=== PATIENT | female | born 1945 | race Caucasian/White ===

== ENCOUNTER 2017-07-25 10:15 | Outpatient (CLI) | payer MEDICARE ==
--- NOTE | 2017-07-25 11:05 | RAD ---
TWO VIEWS CERVICAL SPINE: History: Follow up exam. Previous cervical spine surgery. Comparison: 04-25-17 FINDINGS: Re-demonstration of anterior fusion plate with transvertebral screw at C4, C5, C6 and C7. There raymundo nues to be anterior migration of plate with respect to the vertebral bodies. At the C4 level, there i s approximately 3 mm of anterior migration. At the C7 vertebral body there is 2 mm of anterior migrat ion. The degree of migration has decreased when compared to prior exam. Stable prosthesis at C4-5, C5 -6, and C6-7 disc spaces. AP projection demonstrates degenerative changes of the posterior elements. Odontoid process and later al masses of C1 and C2 are unremarkable. IMPRESSION: Post-operative changes as above. POS: [facility]UL[facility]
== END 2017-07-25 10:16 | disposition home or self-care (01) ==
LOC: TBSIIMAG 10:15
PROVIDERS: ATTEND Surgery
DX: M50.30 Other cervical disc degeneration, unspecified cervical region (principal); Z98.890 Other specified postprocedural states
CPT/HCPCS: 72040

== ENCOUNTER 2017-10-31 17:57 | Observation (INO) | payer MEDICARE ==
[~2017-10-31 17:57] MED LIST: ISOVUE-370 76%-LOCM 1 ML ONE
[2017-10-31] MEDS ORDERED: Lorazepam 2 MG/ML VIAL ONE (18:29)
[2017-10-31 18:36] LABS: #Eosinphils 0.2 thou/uL (0.0-0.7); #Lymphocytes 1.2 thou/uL (1.20-3.40); #Monocytes 0.3 thou/uL (0.11-0.59); #Neutrophils 3.1 thou/uL (1.40-6.50); %Basophils 0.7 % (0.0-1.0); %Eosinophils 3.6 % (0.0-10.0); %Lymphocytes 24.1 % (21.0-51.0); %Monocytes 6.5 % (0.0-10.0); %Neutrophils 65.2 % (42.0-75.0); Hemoglobin 13.4 g/dL (12.0-16.0); Mean Corpuscular Hemoglobin 30.5 pg (27.0-31.0); Mean Corpuscular Volume 89.7 fl (81.0-99.0); Mean Platelet Volume 6.8 fL (7.4-10.4); Platelet Count 222 thou/uL (130-400); RBC Distribution Width 12.9 % (11.5-14.5); Red Blood Cell (RBC) Count 4.39 mill/uL (4.20-5.40); White Blood Cell (WBC) Count 4.8 thou/uL (4.8-10.8)
[2017-10-31 19:02] LABS: ALT (SGPT) Less than 7 U/L (8-55); AST (SGOT) 14 U/L (5-34); Alkaline Phosphatase 111 U/L (40-150); Anion Gap 9 mmol/L (10-20); BUN (Urea Nitrogen) 15 mg/dL (9.8-20.1); Bilirubin, Total 0.4 mg/dL (0.2-1.2); Calc. Creatinine Clearance 0 mL/min (70-130); Calcium 9.3 mg/dL (7.8-10.44); Carbon Dioxide 31 mmol/L (23-31); Chloride 104 mmol/L (98-107); Estimated GFR-MDRD 44; Globulin 2.8 g/dL (2.4-3.5); Glucose 110 mg/dL (83-110); Potassium 3.6 mmol/L (3.5-5.1); Protein, Total 6.8 g/dL (6.0-8.3); Sodium 140 mmol/L (136-145)
[2017-10-31 19:07] LABS: CKMB 1.2 ng/mL (0-6.6); Troponin I Less than 0.010 ng/mL (< 0.028)
--- NOTE | 2017-10-31 19:36 | RAD ---
CHEST ONE VIEW 10/31/17 HISTORY: Emergency exam. COMPARISON: Chest radiograph 2016. FINDINGS: Lungs without focal air space consolidation, pneumothorax or effusion. Increased mediastinal fat. The aorta is mildly tortuous. Incomplete evaluation of the ACDF hardware. IMPRESSION: No acute intrathoracic abnormality or significant change. POS: [facility]
[2017-10-31] MEDS ORDERED: Acetaminophen 325 MG TAB PO PRN ×2 (22:15→22:47)
[2017-10-31] MEDS ORDERED: Ondansetron HCl/PF 4 MG/2 ML Vial IVP PRN ×2 (22:15→22:47)
[2017-10-31] MEDS ORDERED: Ondansetron ODT 4 MG TAB SL PRN (22:15)
--- NOTE | 2017-10-31 22:22 | CT ---
CT ANGIOGRAM CHEST WITH CONTRAST 10/31/17 HISTORY: Dyspnea and fatigue. COMPARISON: None. FINDINGS: CT angiogram of the chest performed after the intravenous administration of contrast. 3D rendering is provided. Pulmonary trunk size is upper limits of normal. No proximal segmental pulmonary arterial f illing defect. Thyroid is unremarkable. The ascending aorta measures approximately 4 cm. No adenopathy. Heart size upper limits of normal. Mild pancreatic atrophy. [place] nodes may be splenule. Right upper lobe calcified granuloma. Mild atelectasis in the right lung base. No displaced rib fracture. No arthrosis or compression fracture. IMPRESSION: 1. No proximal segmental pulmonary arterial filling defect. 2. No acute intrathoracic abnormality. POS: [facility]
[2017-10-31 22:35] LABS: Troponin I Less than 0.010 ng/mL (< 0.028)
[2017-10-31 22:44] LABS: Cardiac Risk 4.7 (Less than 4.5)
[2017-10-31] MEDS ORDERED: hydrALAZINE 20 MG/ML VIAL SLOW IVP PRN (22:47)
[2017-10-31] MEDS ORDERED: traMADol HCl 50 MG TAB PO PRN (22:47)
[2017-10-31] MEDS ORDERED: Mag-Al 1200 mg/1200 mg/30 ML UDCUP PO PRN (22:47)
[2017-10-31] MEDS ORDERED: Benzonatate 100 MG CAP PO PRN (22:47)
[2017-10-31] MEDS ORDERED: Lorazepam 1 MG TAB PO PRN (22:47)
[2017-10-31] MEDS ORDERED: Diabetic Tussin 200 MG/10 ML UDCUP PO PRN (22:47)
[2017-10-31] MEDS ORDERED: Bisacodyl 5 MG TAB PO PRN (22:47)
[2017-10-31] MEDS ORDERED: Calcium Carbonate 500 MG ChewTAB PO PRN (22:47)
[2017-10-31] MEDS ORDERED: cloNIDine 0.1 MG TAB PO PRN (22:47)
[2017-10-31] MEDS ORDERED: Nitroglycerin 0.4 MG TAB (25 Tab Bottle) SL PRN (22:47)
[2017-10-31] MEDS ORDERED: Senokot 8.6 MG TAB PO PRN (22:47)
[2017-10-31] MEDS ORDERED: HYDROcodone/Acetaminophen 5/325 mg Tablet PO PRN (22:47)
[2017-10-31] MEDS ORDERED: Loratadine 10 MG TAB PO PRN (22:47)
--- NOTE | 2017-10-31 23:15 | HP ---
PRIMARY CARE PHYSICIAN: Dr. Teresa Smith. CHIEF COMPLAINT: Worsening shortness of breath and excessive tiredness. HISTORY OF PRESENT ILLNESS: Ms. Barry is a very pleasant 72-year-old female with past med ical history of Parkinson's, hypertension, dyslipidemia, gastroesophageal reflux disease, who present ed to the emergency room with above-mentioned complaint. History is mainly obtained by the patient h erself and electronic medical records have been reviewed. The patient reports that she usually is very active, but for the last week or so, she is finding that she is getting easily tired and short of breath. [place], but when she was doing it yesterday, she just could not catch a good breath. She also has history of si gnificant chronic back pain and neck pain and is under the care of Dr. Monteiro and feels that her pain is worse now. She feels that the neck pain has traveled to the front of her chest and she is v emily sore in the anterior chest and her right arm, but her main complaint is excessive tiredness and w eakness. She noticed that she has been sleeping longer stretches even during the day. She does repo rt that she is under a lot of mental stress these days. She also reports that recently the Synthroid dose was reduced, but it has not been checked in few sun and she is due for a TSH check. She was reduced from 125 to 100 to 88 mcg. She also endorses so me dysuria and urgency. Urinalysis has not been done. She also reports that she has history of high cholesterol, but has been unable to take any medications because of severe myopathy. Her primary ca re physician has tried different medications without any effect. She reports that she follows up with Dr. Coto on a regular basis. She is undergoing a stress te st almost every 2 years and her last one was about 1 year ago and everything has been reportedly very well. 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 Coto. She denies any recent illnesses or flu-like symptoms. No nausea, vomiting, diarrhea, abdominal pain. She denies any fever, chills, cough. She has mild extremity swelling, but denies any orthopnea or PND. PAST MEDICAL HISTORY: 1. Hypertension. 2. Dyslipidemia. 3. Gastroesophageal reflux disease. 4. Hypothyroidism. 5. Parkinson's disease. 6. Fibromyalgia. 7. Chronic back and neck pain. PAST SURGICAL HISTORY: 1. Spinal surgery. 2. Multiple biopsies of the breast, both sides. 3. Neck surgery. 4. Hernia repair. 5. Hysterectomy. PSYCHIATRIC HISTORY: Depression. SOCIAL HISTORY: She lives alone. No history of drug, tobacco or alcohol abuse. FAMILY HISTORY: Significant for heart disease in her father who is still alive at 95. He had a hear t attack in his 80s. Her mother had multiple mini strokes and is . ALLERGIES: No known medication allergies. CURRENT HOME MEDICATIONS: 1. Carbidopa/levodopa 50/200 twice a day and 25/100 at lunch time. 2. Aspirin 81 mg daily. 3. Chlordiazepoxide/Clidinium 5/2.5 mg b.i.d. 4. Carvedilol 3.125 mg b.i.d. 5. Nexium 20 mg daily. 6. Duloxetine 60 mg b.i.d. REVIEW OF SYSTEMS: The following complete review of systems was negative, unless otherwise mentioned in the HPI or below: Constitutional: Weight loss or gain, ability to conduct usual activities. Skin: Rash, itching. Eyes: Double vision, pain. ENT/Mouth: Nose bleeding, neck stiffness, pain, tenderness. Cardiovascular: Palpitations, dyspnea on exertion, orthopnea. Respiratory: Shortness of breath, wheezing, cough, hemoptysis, fever or night sweats. Gastrointestinal: Poor appetite, abdominal pain, heartburn, nausea, vomiting, constipation, or diarr hea. Genitourinary: Urgency, frequency, dysuria, nocturia. Musculoskeletal: Pain, swelling. Neurologic/Psychiatric: Anxiety, depression. Allergy/Immunologic: Skin rash, bleeding tendency. LABORATORY DATA AND IMAGING: Her CBC today is unremarkable. D-dimer elevated to 0.58. Serum chemis tries show creatinine of 1.21 and this seems to be at baseline looking back at least 2 years. Cardia c enzymes negative so far. Her EKG showed some T-wave inversion in the anterior leads, otherwise nor mal sinus rhythm by my review. Chest x-ray by my review has no evidence to suggest any effusion, rosette ma or infiltrate. CT angio of the thorax has been done, because of the elevated D-dimer and reported ly it has been negative for pulmonary embolism. Formal report is pending at this time. PHYSICAL EXAMINATION: VITAL SIGNS: Upon presentation, blood pressure 194/107, pulse of 75, respirations 14, saturating 99% on room air, temperature 98.5. GENERAL: No acute distress, sitting upright in chair, awake, alert, oriented x3. HEENT: Mucous membrane is moist and pink. No oropharyngeal exudate or erythema. Head is normocepha lic, atraumatic. Pupils equal, reactive to light and accommodation. Extraocular movement intact. NECK: Supple without any lymphadenopathy, JVD or bruit. CHEST: Clear to auscultation without any wheezing, rales or rhonchi. Rate and rhythm is regular wit hout any murmur, rubs or gallops. She is tender to palpation anteriorly in the chest wall, both left and right side without any obvious erythema or tenderness or swelling or masses. ABDOMEN: Soft, nontender, nondistended with positive bowel sounds. EXTREMITIES: Free of any cyanosis, clubbing, or edema. NEUROLOGIC: Nonfocal. SKIN: Free of any rashes or bruises. Feel warm and dry to touch. PSYCHIATRIC: Normal affect, but she was tearful in the ED. IMPRESSION AND PLAN: 1. Dyspnea on exertion. The etiology is unclear at this time. We will rule out cardiac causes; how ever, the patient has refused the stress test at this time. We will try to get the results of her mo recent stress test done at Dr. Coto's office. Continue to trend serial cardiac enzymes and w e will also obtain a transthoracic echocardiogram to rule out cardiomyopathy or valvular abnormalitie s. She will be treated with oxygen as needed. We will also check a BNP, though her symptoms are not consistent with fluid overload. No evidence to suggest infectious etiology like pneumonia. She carin s not have any history of chronic obstructive pulmonary disease and her examination is also not consi stent with airway disease. We will also check a TSH, which can most likely be contributing to her sy mptoms of excessive fatigue. Stress can also be a contributing factor to her symptoms at this time. She is not hypoxic or symptomatic at this time. 2. Hypothyroidism. Check TSH as above. 3. Parkinson's. We will resume her carbidopa and levodopa at home dosages. 4. Dyslipidemia. The patient is intolerant to statins and other antilipidemic agents. We will chec k her lipid panel. 5. Hypertensive urgency. We will resume her carvedilol at this time and add p.r.n. antihypertensive s. Her repeat blood pressure has significantly improved, so most likely this is secondary to stress. Her repeat blood pressure is 155/86. If necessary, we will either increase the carvedilol or add A CE inhibitors depending upon the results of her echocardiogram. 5. Depression. Continue duloxetine. 6. CODE STATUS: FULL CODE, discussed with the patient. 7. Add p.r.n. medication order and deep venous thrombosis and gastrointestinal prophylaxis. DISPOSITION: Ms. Barry is currently being admitted for further workup for dyspnea and tiredness to rule out acute coronary syndrome. Further management will depend upon her clinical course. Estimated length of stay at this time is less than 2-3 midnights.
[2017-11-01 00:58] LABS: Troponin I Less than 0.010 ng/mL (< 0.028)
[2017-11-01 01:20] LABS: Bilirubin Negative (Negative); Blood, Urine Negative (Negative); Clarity CLEAR (Clear); Glucose, Urine (Dipstick) Negative (Negative); Leukocyte Negative (Negative); Nitrite Negative (Negative); Protein, Urine (Dipstick) Negative (Neg-Trace); Specific Gravity, Urine 1.027 (1.002-1.036); Urobilinogen 0.2 mg/dL (0.2-1.0); pH, Urine 7.5 (5.0-9.0)
[2017-11-01 04:17] LABS: #Eosinphils 0.2 thou/uL (0.0-0.7); #Lymphocytes 1.2 thou/uL (1.20-3.40); #Monocytes 0.3 thou/uL (0.11-0.59); %Eosinophils 3.7 % (0.0-10.0); %Lymphocytes 25.1 % (21.0-51.0); %Monocytes 6.8 % (0.0-10.0); %Neutrophils 63.4 % (42.0-75.0); Hemoglobin 12.5 g/dL (12.0-16.0); Mean Corpuscular HGB CONC 33.2 g/dL (32.0-36.0); Mean Corpuscular Hemoglobin 30.9 pg (27.0-31.0); Mean Corpuscular Volume 93.1 fl (81.0-99.0); Mean Platelet Volume 7.3 fL (7.4-10.4); Platelet Count 197 thou/uL (130-400); RBC Distribution Width 13.1 % (11.5-14.5); Red Blood Cell (RBC) Count 4.06 mill/uL (4.20-5.40); White Blood Cell (WBC) Count 4.7 thou/uL (4.8-10.8)
[2017-11-01 04:32] LABS: Anion Gap 13 mmol/L (10-20); BUN (Urea Nitrogen) 14 mg/dL (9.8-20.1); Calc. Creatinine Clearance 51 mL/min (70-130); Calcium 9.1 mg/dL (7.8-10.44); Carbon Dioxide 27 mmol/L (23-31); Chloride 103 mmol/L (98-107); Estimated GFR-MDRD 49; Glucose 132 mg/dL (83-110); Potassium 3.7 mmol/L (3.5-5.1); Sodium 139 mmol/L (136-145)
[2017-11-01 07:38] VITALS: BP 143/65; TEMP 97.6
[2017-11-01] MEDS ORDERED: Carvedilol 3.125 MG TAB PO SCH (08:00)
[2017-11-01] MEDS ORDERED: Enoxaparin Sodium 40 MG/0.4 ML SYRINGE SC SCH (09:00)
[2017-11-01] MEDS ORDERED: Aspirin 81 mg Enteric Coated Tablet PO SCH (09:00)
[2017-11-01] MEDS ORDERED: Carbidopa/Levodopa 25-100 mg Tablet PO SCH ×2 (09:00→12:00)
[2017-11-01] MEDS ORDERED: DULoxetine 60 MG CAP PO SCH (09:00)
[2017-11-01] MEDS ORDERED: Famotidine 20 MG TAB PO SCH (09:00)
--- NOTE | 2017-11-01 10:13 | PDOC.PN ---
- Subjective Encounter Start Date: 11/01/17 Encounter Start Time: 08:20 Subjective: no c/o chest pain or sob or palp - Objective MAR Reviewed: Yes Vital Signs & Weight: Vital Signs (12 hours) Temp Pulse Resp BP BP Pulse Ox 11/01/17 08:00 97.6 F 51 L 16 11/01/17 07:04 97.6 F 51 L 16 143/65 H 95 11/01/17 04:15 51 L 18 114/66 94 L 11/01/17 00:50 61 18 130/72 10/31/17 23:30 62 195/93 H Weight Weight 152 lb Result Diagrams: 11/01/17 00:26 11/01/17 00:26 Phys Exam - Physical Examination HEENT: PERRLA, moist MMs Neck: no JVD, supple Respiratory: no wheezing, no rales Cardiovascular: RRR, no significant murmur Gastrointestinal: soft, non-tender, positive bowel sounds Musculoskeletal: no edema, pulses present Neurological: non-focal, moves all 4 limbs Psychiatric: A&O x 3 Dx/Plan (1) Chest pain Code(s): R07.9 - CHEST PAIN, UNSPECIFIED Status: Acute (2) Dyslipidemia Code(s): E78.5 - HYPERLIPIDEMIA, UNSPECIFIED Status: Chronic (3) Parkinson disease Code(s): G20 - PARKINSON'S DISEASE Status: Chronic (4) Hypothyroidism Code(s): E03.9 - HYPOTHYROIDISM, UNSPECIFIED Status: Chronic - Plan add crestor, fish oil -: dc pt home -: to f/u with as before, pcp in 1 week. -: Pt to call 's office for f/u appt * .
--- NOTE | 2017-11-01 19:43 | DIS ---
DATE OF ADMISSION: 10/31/2017 DATE OF DISCHARGE: 11/01/2017 DISCHARGE DISPOSITION: To home. PRIMARY DISCHARGE DIAGNOSIS: Chest pain, which is noncardiac. SECONDARY DISCHARGE DIAGNOSES: Dyslipidemia, Parkinson's disease, hypothyroidism. PROCEDURES DONE DURING HOSPITALIZATION: The patient has had CT angio chest done, which showed no batsheva dence of PE. Urine culture no growth at 12 hours. H&H 12 and 37, platelet count 197. BUN and creat inine are 14 and 1.0. Total cholesterol 239, triglycerides 214, LDL is 145. TSH 2.76. BNP 142. Tr oponin x3 negative. DISCHARGE MEDICATIONS: Aspirin 81 mg p.o. daily, Sinemet as before, Coreg 3.125 mg p.o. twice daily, Librax 1 capsule twice daily, clonazepam 1 mg p.o. at bedtime, duloxetine 60 mg p.o. daily, Nexium 4 0 mg p.o. daily, levothyroxine 88 mcg p.o. daily, omega-3 fatty acid 1 capsule daily, Crestor 10 mg p .o. at bedtime. ALLERGIES: No known drug allergies. DISCHARGE PLAN: The patient to follow up with primary care physician in 1 week and she also needs to follow up with Dr. Coto, her mobile nurse in 4 weeks. BRIEF COURSE DURING HOSPITALIZATION: The patient initially came in with complaints of neck pain radi ating to the chest. In view of risk factors, the patient was placed under observation to rule out AC S. She has chronic cervical spine issues with prior surgery as well and has followed up with Dr. Amelia bryan for the same. The patient also had a stress test done a year back with Dr. Coto. She was e ssentially for trending of cardiac enzymes, which have remained stable and negative. The patient was placed on Crestor due to her LDL of 145 and triglycerides of 214. The patient was also advised to t brenda fish oil. She has been advised to discontinue Crestor if she were to develop muscle or body ache s. The patient is counseled to call Dr. Agee's office for the posterior neck pain radiating anteri michael to the chest wall in view of prior history of C-spine disease. She is otherwise hemodynamically stable. She is ambulating well and eating well prior to discharge.
[2017-11-01] MEDS ORDERED: Rosuvastatin 10 MG TAB PO SCH (21:00)
== END 2017-11-01 10:21 | disposition home or self-care (01) ==
LOC: ERS 17:57 → 2SW 21:00
PROVIDERS: ADMIT Internal Medicine; ATTEND Internal Medicine
DX: R07.89 Other chest pain (principal); E78.5 Hyperlipidemia, unspecified; E03.9 Hypothyroidism, unspecified; G20 Parkinson's disease; F32.9 Major depressive disorder, single episode, unspecified; I10 Essential (primary) hypertension; K21.9 Gastro-esophageal reflux disease without esophagitis; I16.0 Hypertensive urgency; M79.7 Fibromyalgia; G89.29 Other chronic pain; M54.9 Dorsalgia, unspecified; M54.2 Cervicalgia; Z79.82 Long term (current) use of aspirin; Z79.899 Other long term (current) drug therapy; Z98.890 Other specified postprocedural states; Z82.49 Family history of ischemic heart disease and other diseases of the circulatory system
CPT/HCPCS: 71045; 71275; 80048; 80061; 81003; 82553; 83880; 84484 ×3; 85025; 85379; 87086; 93005; 96372; 97139; 99285; G0378; 36415; 80053; 84443; A4216; J1650; J2060

== ENCOUNTER 2018-01-16 09:59 | Outpatient (CLI) | payer MEDICARE ==
--- NOTE | 2018-01-16 10:47 | RAD ---
CERVICAL SPINE THREE VIEWS: History: Neck pain. Follow up of surgery. Comparison: 07-25-17 FINDINGS: Patient has undergone anterior cervical fusion with placement of a plate and screws which extends fro m C4 to C7. The position of the plate and screws is unchanged. Markers of disc implants are within th e confines of the disc levels. Degenerative facet changes are noted. IMPRESSION: Stable exam. POS: [facility]
== END 2018-01-16 10:00 | disposition home or self-care (01) ==
LOC: TBSIIMAG 09:59
PROVIDERS: ATTEND Surgery
DX: M54.2 Cervicalgia (principal); Z98.1 Arthrodesis status
CPT/HCPCS: 72040

== ENCOUNTER 2018-03-20 20:35 | Emergency (ER) | payer MEDICARE ==
--- NOTE | 2018-03-20 23:57 | CT ---
CT CERVICAL SPINE WITHOUT CONTRAST 03/20/18 HISTORY: Patient fell from bed. Posttraumatic headache. Pain. COMPARISON: 04/25/17. FINDINGS: Redemonstration of cervical fusion changes at C4, C5, C6, and C7. No perihardware lucency. Stable rhys earance of a disc prosthesis. There is no prevertebral soft tissue swelling. There is no malalignment . Varying degrees of central canal stenosis and foraminal narrowing on the basis of degenerative change . Evaluation is limited by technique. Upper mediastinum is unremarkable. Chronic changes in the lung apices are noted. There is no craniocervical dissociation. Lateral masses of C1 and C2 as well as facets have appropria te alignment. Odontoid process is intact. Cervical spine vertebral body height is maintained. There is no fracture. IMPRESSION: No cervical spine fracture. POS: [facility]
--- NOTE | 2018-03-21 00:04 | CT ---
NONCONTRAST HEAD CT 03/20/18 HISTORY: Patient fell out of bed. Posterior head pain. COMPARISON: 05/18/16 FINDINGS: No parenchymal hemorrhage. No extra-axial hematoma. No midline shift. Basilar cisterns are patent. Ag e appropriate atrophy. Cortical summers-white matter differentiation is preserved. Ventricles and sulci are patent and symmetric. Adequate aeration of the sinuses and mastoid air cells. Calvarium is intact. Bilateral ocular lens im plants are noted. IMPRESSION: No intracranial posttraumatic sequela. POS: [facility]
[2018-03-21] MEDS ORDERED: cloNIDine 0.1 MG TAB ONE (00:32)
== END 2018-03-21 01:54 | disposition home or self-care (01) ==
LOC: ERS 20:35
DX: S09.90XA Unspecified injury of head, initial encounter (principal); E03.9 Hypothyroidism, unspecified; I10 Essential (primary) hypertension; F32.9 Major depressive disorder, single episode, unspecified; Z79.82 Long term (current) use of aspirin; Z79.899 Other long term (current) drug therapy; W22.8XXA Striking against or struck by other objects, initial encounter
CPT/HCPCS: 70450; 72125; 99283; G0260; G0463; 27096; 99214; J1030; S0020

== ENCOUNTER 2018-05-31 12:27 | Outpatient (CLI) | payer MEDICARE ==
--- NOTE | 2018-05-31 15:08 | MRI ---
MRI OF THE RIGHT SHOULDER: DATE: 05/31/2018. PROVIDED CLINICAL HISTORY: Right shoulder pain. FINDINGS: There is abnormal appearance to the distal conjoined tendon just proximal to the foot plate. There i s increased signal intensity on fluid-sensitive sequences involving this portion of the rotator cuff with poor definition to tendon fibers on multiple sequences. There are small foci of true fluid sign al intensity. The subscapularis and teres minor tendons appear intact. The long head biceps tendon appears intact and normally located. There is suboptimal evaluation of the glenoid labrum and glenohumeral articular cartilage on the basi s of patient motion. No definite full-thickness articular cartilage defect is apparent. No evidence for displaced labral tear. There is a moderate glenohumeral joint effusion. There is a large amount of subacromial subdeltoid bursal fluid, which communicates with the subcoraco id bursa in this patient. There is conspicuous distention of the subcoracoid bursa. There are multi ple intraarticular bodies within the superior subscapularis recess. Acromioclavicular joint osteoarthrosis is demonstrated with mild mass effect upon the subjacent supra spinatus. Rotator cuff muscular volume appears preserved. No focal concerning regional marrow or mu scular signal abnormality apparent. IMPRESSION: 1. Abnormal appearance to the distal conjoined tendon. This may reflect prior tear with granulation tissue formation. Some combination of tendinosis and partial-thickness nonattenuating interstitial tearing is also possible. 2. Moderate glenohumeral joint effusion with intraarticular bodies. 3. A very large amount of subacromial subdeltoid bursal fluid, as well as communication with distend ed subcoracoid bursa. This presumably reflects bursitis, though could indicate communication between the glenohumeral joint and subacromial subdeltoid bursa such as could be seen with an occult full-th ickness rotator cuff tear. POS: [facility]
== END 2018-05-31 12:28 | disposition home or self-care (01) ==
LOC: BICMRI 12:27
PROVIDERS: ATTEND Orthopaedic Surgery
DX: M25.511 Pain in right shoulder (principal); M75.91 Shoulder lesion, unspecified, right shoulder; M25.411 Effusion, right shoulder

== ENCOUNTER 2018-07-01 12:11 | Outpatient (CLI) | payer MEDICARE ==
[2018-07-01 14:12] LABS: #Eosinphils 0.2 thou/uL (0.0-0.7); #Lymphocytes 1.2 thou/uL (1.20-3.40); #Monocytes 0.3 thou/uL (0.11-0.59); #Neutrophils 3.4 thou/uL (1.40-6.50); %Basophils 0.5 % (0.0-1.0); %Eosinophils 3.6 % (0.0-10.0); %Lymphocytes 24.1 % (21.0-51.0); %Monocytes 5.6 % (0.0-10.0); %Neutrophils 66.2 % (42.0-75.0); Hemoglobin 13.7 g/dL (12.0-16.0); Mean Corpuscular HGB CONC 32.2 g/dL (32.0-36.0); Mean Corpuscular Hemoglobin 30.1 pg (27.0-31.0); Mean Corpuscular Volume 93.6 fL (78.0-98.0); Mean Platelet Volume 7.4 fL (7.4-10.4); Platelet Count 172 thou/uL (130-400); RBC Distribution Width 12.6 % (11.5-14.5); Red Blood Cell (RBC) Count 4.54 mill/uL (4.20-5.40); White Blood Cell (WBC) Count 5.1 thou/uL (4.8-10.8)
[2018-07-01 14:36] LABS: Anion Gap 9 mmol/L (10-20); BUN (Urea Nitrogen) 11 mg/dL (9.8-20.1); Calc. Creatinine Clearance 0 mL/min (70-130); Calcium 10.3 mg/dL (7.8-10.44); Carbon Dioxide 32 mmol/L (23-31); Chloride 103 mmol/L (98-107); Estimated GFR-MDRD 45; Glucose 76 mg/dL (83-110); Potassium 3.6 mmol/L (3.5-5.1); Sodium 140 mmol/L (136-145)
--- NOTE | 2018-07-01 17:00 | EKG ---
Test Reason : Blood Pressure : / mmHG Vent. Rate : 064 BPM Atrial Rate : 064 BPM P-R Int : 180 ms QRS Dur : 082 ms QT Int : 388 ms P-R-T Axes : 035 078 080 degrees QTc Int : 400 ms Normal sinus rhythm Nonspecific ST-T changes When compared with ECG of 31-OCT-2017 19:39, No significant change was found Confirmed by DR. Val AMES (3) on 07/01/2018 4:59:59 PM Referred By: IERO Confirmed By:DR. Val AMES
== END 2018-07-01 12:12 | disposition home or self-care (01) ==
LOC: LABBT 12:11
PROVIDERS: ATTEND Orthopaedic Surgery
DX: Z01.818 Encounter for other preprocedural examination (principal)
CPT/HCPCS: 80048; 85025; 93005; 93010

== ENCOUNTER 2018-07-03 07:21 | Day surgery (SDC) | payer MEDICARE ==
[2018-07-01 12:35] VITALS: BMI 28.6
[2018-07-03] MEDS ORDERED: Ropivacaine 0.5% HCl/PF (150 MG/30 ML VIAL) ONE (08:08)
[2018-07-03] MEDS ORDERED: Ropivacaine 0.2% HCl/PF (40 MG/20 ML VIAL) ONE (08:08)
[2018-07-03] MEDS ORDERED: Esmolol 100 MG/10 ML VIAL ONE (08:26)
[2018-07-03] MEDS ORDERED: PROPOFOL 200 MG/20 ML VIAL ONE (08:26)
[2018-07-03] MEDS ORDERED: Metoprolol Tartrate 5 MG/5 ML VIAL ONE (08:26)
[2018-07-03] MEDS ORDERED: Ondansetron PF 4 MG/2 ML Vial ONE (08:26)
[2018-07-03] MEDS ORDERED: Glycopyrrolate 0.2 MG/ML 5 ML SYRINGE ONE (08:26)
[2018-07-03] MEDS ORDERED: Dexamethasone 20 MG/5 ML VIAL ONE (08:26)
[2018-07-03] MEDS ORDERED: Metoclopramide HCl 10 MG/2 ML VIAL ONE (08:26)
[2018-07-03] MEDS ORDERED: Lidocaine 1% PF 5 ML VIAL ONE (08:26)
[2018-07-03] MEDS ORDERED: Ketorolac Tromethamine 30 MG/ML VIAL ONE (08:26)
[2018-07-03] MEDS ORDERED: Fentanyl 100 MCG/2 ML VIAL ONE (08:37)
[2018-07-03] MEDS ORDERED: Midazolam HCl 2 mg/2 ml Vial ONE (08:37)
[2018-07-03] MEDS ORDERED: Lidocaine 1% (PF) 30 ML VIAL ONE (08:37)
[2018-07-03] MEDS ORDERED: CEFAZOLIN 2 GM/50 ML BAG ONE (08:38)
[2018-07-03] MEDS ORDERED: SUGAMMADEX SODIUM 200 MG/2 ML VIAL ONE (09:33)
[2018-07-03] MEDS ORDERED: Famotidine/PF 20 mg/2ml Vial ONE (09:33)
[2018-07-03] MEDS ORDERED: Ropivacaine 0.2% 550 ML 550 ML NERVE BLCK SCH (09:42)
[2018-07-03] MEDS ORDERED: traMADol HCl 50 MG TAB PO PRN ×2 (09:42)
[2018-07-03] MEDS ORDERED: Promethazine HCl 25 MG/ML VIAL IM PRN (09:42)
[2018-07-03] MEDS ORDERED: Ondansetron PF 4 MG/2 ML Vial IVP PRN (09:42)
[2018-07-03] MEDS ORDERED: Zolpidem Tartrate 5 MG TAB PO PRN (09:42)
[2018-07-03] MEDS ORDERED: HYDROcodone/Acetaminophen 7.5/325 mg Tablet PO PRN ×2 (09:43)
[2018-07-03] MEDS ORDERED: Fentanyl 100 MCG/2 ML VIAL IV PRN (09:43)
[2018-07-03] MEDS ORDERED: Bupivacaine/Epinephrine 0.25% 30 ML VIAL ONE (09:56)
[2018-07-03] MEDS ORDERED: hydrALAZINE 20 MG/ML VIAL ONE (10:32)
--- NOTE | 2018-07-04 12:49 | OP ---
DATE OF PROCEDURE: 07/03/2018. PREOPERATIVE DIAGNOSES: Right shoulder multiple loose bodies, early arthritis, partial cuff tear and biceps tendon tearing and instability. POSTOPERATIVE DIAGNOSES: Right shoulder multiple loose bodies, early arthritis, partial cuff tear an d biceps tendon tearing and instability. PROCEDURE PERFORMED: 1. Right shoulder arthroscopy with removal of cartilaginous loose bodies 2. Debridement and shaving of unstable cartilage flaps in the glenohumeral joint. 3. Debridement and cauterization of significant synovitic changes in the glenohumeral joint. 4. Debridement of partial undersurface rotator cuff tear. 5. Arthroscopic biceps tenotomy. 6. Debridement of subacromial bursa. SURGEON: Roger Miller M.D. CONSTRUCTION LINEMAN: None. BLOOD LOSS: Minimal. COMPLICATIONS: None. She did have general anesthetic as well as a preoperative block. There were no implants. CONDITION: She went to the recovery room in stable condition. INDICATIONS: This is a 73-year-old female who has had long-term shoulder problems. At this time, he was taken to the OR for surgery. After both consent forms were explained and signed, she was taken to the operating room and at this time was given general anesthetic. She was then rolled into the le ft lateral decubitus position with all bony prominences well-padded. Axillary roll was placed beneat h the left axilla and the moore bag was inflated to hold this position. At this time, the arm was jeanette en through range of motion and was found to have no significant loss of motion. [facility] traction device in standard fashion with 10 pounds supporting it. At this time, we then prepped and draped the right shoulder and upper extremity in standard lazara gical fashion. Bony anatomic landmarks were then drawn out and subacromial space was infiltrated wit h Marcaine with epinephrine. Posterior portal established was placed into the shoulder joint. Anterior working portal was made and immediately, we noted some loose bodies floating around in the glenohumeral joint. These were removed with a suction shaver device. There were two more loose bodi es encountered throughout the glenohumeral arthroscopy portion of the procedure. Again, these were r emoved with the suction shaver device. The rotator cuff was found to have a partial undersurface tea r. Once debrided, there was significant a good tissue and did not feel a need to be treated any furt her. No further loose bodies were noted in the axillary pouch. The humeral head did have some chond ral changes anteriorly, but I believe the donor area for the cartilage loose bodies was from the evan oid as there were some significant grade 3 and near-full thickness lesions on the glenoid. The gleno humeral joint also had a significant amount of synovitic tissue. This was coagulated with surface en ergy and debrided to remove this to help with postoperative pain and lack of bleeding. The degenerat hannah labrum was debrided throughout and at this time, the biceps was found to be in stable, has a trem endous amount of synovitic tissue above it and in fact, it was all scarred down secondary to this. T his area was freed up. Synovitic tissue was ablated and coagulated and the biceps tenotomy was perfo rmed with the surface energy. Once this was done, the glenohumeral joint overall looked pretty good with no more loose bodies. No significant synovitic tissue and normal painful biceps. Therefore, th e scope was removed and repositioned in subacromial space. A lateral working portal was then made. Bursa was removed from off the underlying cuff. The cuff itself was found to be intact. No signific ant bony decompression was performed. At this time, scope was removed, shoulder was drained. Each p ortal was closed with simple nylon stitch and a bulky sterile dressing was applied. The patient was then awakened. She was taken to the recovery room in stable condition. All counts were correct at t he end of the case and she did receive preoperative IV antibiotics.
--- NOTE | 2018-07-04 12:49 | HP ---
HISTORY OF PRESENT ILLNESS: This is a 73-year-old female who has had months of increasing right shou lder pain. We have tried to treat this nonoperatively with rest, medicines, injections and home ther apy program. Unfortunately, the patient has continued to have problems and we did obtain an MRI whic h showed her to have some loose bodies, some early arthritic change in the shoulder, a partial thickn ess rotator cuff tear and some significant thickening of her biceps tendon. At this time, she is pre senting for surgery. PAST MEDICAL HISTORY/PAST SURGICAL HISTORY/ALLERGIES/ MEDICATIONS/FAMILY HISTORY/SOCIAL HISTORY: Unc hanged from the H&P that are on the chart. PHYSICAL EXAMINATION: GENERAL: She is a well-developed elderly female. She is not in acute distress. She is alert. She is cooperative. HEENT: Within normal limits. EXTREMITIES: Examination of the shoulder shows the skin to be intact. There is no redness, no warmt h. She has no pain with palpation of the AC joint. She has limited range of motion secondary to concepcion n. Testing the elbow with the elbow at the side shows her to have good internal and external rotatio n strength with pain. She has normal function of the elbow, wrist and fingers and is neurovascularly intact distally. ASSESSMENT: A 73-year-old female with underlying right shoulder pain. PLAN: At this time, recommendation from assessment is to go to the operating room for closed manipul ation, if necessary shoulder arthroscopy, removal of loose bodies, debridement of any loose cartilagi nous loose bodies, debridement of any rotator cuff tear and a biceps tenotomy if indicated. Afterwar ds, secondary to patient's lack of supervision at home she has already been preoperatively accepted i [facility] inpatient rehab and will leave from Day Stay here at the hospital to the inpatient rehab afterwar ds.
== END 2018-07-03 15:43 | disposition home or self-care (01) ==
LOC: SDC 07:21
PROVIDERS: ATTEND Orthopaedic Surgery
PROC: 0RCJ4ZZ Extirpation of Matter from Right Shoulder Joint, Percutaneous Endoscopic Approach (ICD-10-PCS; principal; 2018-07-03)
PROC: 0RBJ4ZZ Excision of Right Shoulder Joint, Percutaneous Endoscopic Approach (ICD-10-PCS; 2018-07-03)
PROC: 0RBJ4ZZ Excision of Right Shoulder Joint, Percutaneous Endoscopic Approach (ICD-10-PCS; 2018-07-03)
DX: M75.111 Incomplete rotator cuff tear or rupture of right shoulder, not specified as traumatic (principal); M24.011 Loose body in right shoulder; M19.011 Primary osteoarthritis, right shoulder; M25.311 Other instability, right shoulder; S46.211A Strain of muscle, fascia and tendon of other parts of biceps, right arm, initial encounter; Z79.82 Long term (current) use of aspirin; Z79.899 Other long term (current) drug therapy; Z88.8 Allergy status to other drugs, medicaments and biological substances
CPT/HCPCS: 29820; 97139; A4306; J0131; J0360; J2001; J2250; J2795; J3010; S0028

== ENCOUNTER 2018-07-05 09:04 | Emergency (ER) | payer MEDICARE ==
[2018-07-05] MEDS ORDERED: Ziprasidone 20 MG VIAL ONE (09:33)
[2018-07-05] MEDS ORDERED: Haloperidol Lactate 5 MG/ML VIAL ONE (09:41)
[2018-07-05] MEDS ORDERED: Ziprasidone 20 MG VIAL IM ONE (09:45)
[2018-07-05 10:14] LABS: #Basophils 0.1 thou/uL (0.0-0.2); #Eosinphils 0.1 thou/uL (0.0-0.7); #Lymphocytes 1.3 thou/uL (1.20-3.40); #Monocytes 0.5 thou/uL (0.11-0.59); #Neutrophils 4.1 thou/uL (1.40-6.50); %Basophils 0.9 % (0.0-1.0); %Lymphocytes 21.9 % (21.0-51.0); %Neutrophils 67.2 % (42.0-75.0); Mean Corpuscular HGB CONC 32.7 g/dL (32.0-36.0); Mean Corpuscular Hemoglobin 30.5 pg (27.0-31.0); Mean Corpuscular Volume 93.2 fL (78.0-98.0); Mean Platelet Volume 7.4 fL (7.4-10.4); Platelet Count 160 thou/uL (130-400); RBC Distribution Width 12.7 % (11.5-14.5); Red Blood Cell (RBC) Count 4.59 mill/uL (4.20-5.40); White Blood Cell (WBC) Count 6.1 thou/uL (4.8-10.8)
[2018-07-05 10:37] LABS: ALT (SGPT) 9 U/L (8-55); AST (SGOT) 33 U/L (5-34); Acetaminophen Less than 6.0 mcg/mL (10.0-30.0); Albumin 4.1 g/dL (3.4-4.8); Alcohol Less than 10 mg/dL (Less than 10); Alkaline Phosphatase 58 U/L (40-150); Anion Gap 13 mmol/L (10-20); BUN (Urea Nitrogen) 16 mg/dL (9.8-20.1); Bilirubin, Total 0.5 mg/dL (0.2-1.2); Calc. Creatinine Clearance 0 mL/min (70-130); Calcium 9.3 mg/dL (7.8-10.44); Carbon Dioxide 25 mmol/L (23-31); Chloride 108 mmol/L (98-107); Estimated GFR-MDRD 42; Globulin 2.8 g/dL (2.4-3.5); Glucose 97 mg/dL (83-110); Potassium 3.7 mmol/L (3.5-5.1); Protein, Total 6.9 g/dL (6.0-8.3); Salicylate Less than 8.0 mg/dL (15.0-30.0); Sodium 142 mmol/L (136-145)
--- NOTE | 2018-07-05 11:19 | RAD ---
CHEST ONE VIEW: History: Sycosis. Comparison: 11-01-15 FINDINGS: There are abnormal radiopacities projecting in the right hemithorax, maybe outside of the patient. He art size is mildly enlarged. Lungs are hypoinflated. There is ACDF hardware. IMPRESSION: Radiopacities likely outside of the patient projecting over the right hemithorax. No acute intrathora cic abnormality. POS: [facility]
--- NOTE | 2018-07-05 11:30 | CT ---
CT OF THE BRAIN WITHOUT CONTRAST: Indication: History of undiagnosed psychiatric issues with sycosis. Comparison: 03-20-18 FINDINGS: There is generalized cerebral and cerebellar atrophy which is stable. No acute infarct, hemorrhage, o r hydrocephalus is present. Mastoid air cells and paranasal sinuses are clear. Skull is intact. IMPRESSION: No acute intracranial abnormality. POS: [facility]
[2018-07-05 11:42] LABS: Bilirubin Negative (Negative); Blood, Urine Negative (Negative); Clarity CLEAR (Clear); Glucose, Urine (Dipstick) Negative (Negative); Leukocyte Negative (Negative); Nitrite Negative (Negative); Protein, Urine (Dipstick) Negative (Neg-Trace); Specific Gravity, Urine 1.004 (1.002-1.036); Urobilinogen 0.2 mg/dL (0.2-1.0)
[2018-07-05 11:53] LABS: Amphetamine Not Detected (NotDetected); Barbiturates Screen Not Detected (NotDetected); Benzodiazepine Screen Detected (NotDetected); Cocaine Metabolite Screen Not Detected (NotDetected); Medtox Control Line Valid? VALID (VALID); Medtox Reader # READER 4; Methadone Not Detected (NotDetected); Methamphetamine Not Detected (NotDetected); Opiate Screen Not Detected (NotDetected); Oxycodone Screen Not Detected (NotDetected); Phencyclidine (PCP) Not Detected (NotDetected); THC/Cannabinoid Screen Not Detected (NotDetected); Tricyclic Screen Not Detected (NotDetected)
[2018-07-05] MEDS ORDERED: Lorazepam 2 MG/ML VIAL ONE (19:24)
== END 2018-07-05 19:44 ==
LOC: ERS 09:04
DX: F29 Unspecified psychosis not due to a substance or known physiological condition (principal); G47.30 Sleep apnea, unspecified; K21.9 Gastro-esophageal reflux disease without esophagitis; E78.5 Hyperlipidemia, unspecified; I10 Essential (primary) hypertension; M81.0 Age-related osteoporosis without current pathological fracture; F41.9 Anxiety disorder, unspecified; E03.9 Hypothyroidism, unspecified; F32.9 Major depressive disorder, single episode, unspecified; G20 Parkinson's disease; Z79.82 Long term (current) use of aspirin; Z79.899 Other long term (current) drug therapy; Z79.891 Long term (current) use of opiate analgesic
CPT/HCPCS: 51702; 70450; 71045; 80306; 80307; 81003; 84443; 85025; 96372; 96374; A4353; J1630; J2060; J3486

== ENCOUNTER 2018-07-09 22:48 | Emergency (ER) | payer MEDICARE | END 2018-07-09 23:33 | disposition home or self-care (01) | LOC: SCSER 22:48 | DX: L76.32 Postprocedural hematoma of skin and subcutaneous tissue following other procedure (principal); I10 Essential (primary) hypertension | CPT/HCPCS: 99283 ==

== ENCOUNTER 2018-12-22 13:18 | Emergency (ER) | payer MEDICARE ==
[2018-12-22 13:56] LABS: #Eosinphils 0.1 thou/uL (0.0-0.7); #Lymphocytes 0.9 thou/uL (1.20-3.40); #Monocytes 0.3 thou/uL (0.11-0.59); #Neutrophils 5.1 thou/uL (1.40-6.50); %Basophils 0.7 % (0.0-1.0); %Lymphocytes 14.2 % (21.0-51.0); %Neutrophils 79.2 % (42.0-75.0); Hemoglobin 12.9 g/dL (12.0-16.0); Mean Corpuscular HGB CONC 33.1 g/dL (32.0-36.0); Mean Corpuscular Hemoglobin 30.1 pg (27.0-31.0); Mean Corpuscular Volume 90.8 fL (78.0-98.0); Mean Platelet Volume 6.5 fL (7.4-10.4); Platelet Count 157 thou/uL (130-400); RBC Distribution Width 13.2 % (11.5-14.5); White Blood Cell (WBC) Count 6.4 thou/uL (4.8-10.8)
[2018-12-22 14:12] LABS: Anion Gap 15 mmol/L (10-20); BUN (Urea Nitrogen) 20 mg/dL (9.8-20.1); Calc. Creatinine Clearance 0 mL/min (70-130); Carbon Dioxide 22 mmol/L (23-31); Chloride 105 mmol/L (98-107); Estimated GFR-MDRD 40; Potassium 3.6 mmol/L (3.5-5.1); Sodium 138 mmol/L (136-145)
[2018-12-22 14:13] LABS: ALT (SGPT) Less than 6 U/L (8-55); AST (SGOT) 11 U/L (5-34); Albumin 3.8 g/dL (3.4-4.8); Alkaline Phosphatase 111 U/L (40-150); Bilirubin, Total 0.5 mg/dL (0.2-1.2); Calcium 9.9 mg/dL (7.8-10.44); Globulin 2.3 g/dL (2.4-3.5); Glucose 122 mg/dL (83-110); Protein, Total 6.1 g/dL (6.0-8.3)
--- NOTE | 2018-12-22 14:15 | RAD ---
Right shoulder: 3 views INDICATIONS: Shoulder pain. Mild degenerative change at the glenohumeral joint. AC joint normally aligned. No fracture or disloca tion. IMPRESSION: No acute finding
--- NOTE | 2018-12-22 14:24 | CT ---
CT head without contrast: Multiple axial tomograms obtained through the head without IV enhancement. INDICATIONS: Occipital pain. COMPARISON: 07/05/2018 FINDINGS: Ventricles have normal size and position. Mild cortical volume loss is stable. No evidence of intracranial mass, hemorrhage, edema, or infarct. Visualized sinuses and mastoids appear clear. Bony calvarium appears unremarkable. Scalp hematoma over the left parietal bone measuring approximately 2 cm. IMPRESSION: No acute intracranial abnormality. Scalp hematoma on the left is noted.
--- NOTE | 2018-12-22 14:38 | CT ---
CT cervical spine without contrast: Multiple axial tones obtained through cervical spine with multiplanar reconstruction. INDICATIONS: Neck pain. Right shoulder pain. COMPARISON: CT cervical spine 03/20/2018 FINDINGS: Postoperative changes. Anterior plate and screws again noted C4, C5, C6, and C7. Interbody implants a t these levels again noted. Vertebral bodies otherwise maintain height and alignment. Prominent posterior spondylosis at C4-5 impinges on the anterior cord. Mild foraminal narrowing. Posterior spondylosis abut anterior cord at C5-6. Impingement on the cord from posterior spondylosis at C6-7. Findings are stable from prior CT scan. IMPRESSION: Degenerative and postoperative changes of cervical spine again noted. Not significantly changed from prior exam.
[2018-12-22] MEDS ORDERED: HYDROcodone/Acetaminophen 5/325 mg Tablet ONE (14:49)
== END 2018-12-22 14:53 | disposition home or self-care (01) ==
LOC: SCSER 13:18
DX: S00.03XA Contusion of scalp, initial encounter (principal); K21.9 Gastro-esophageal reflux disease without esophagitis; E03.9 Hypothyroidism, unspecified; I10 Essential (primary) hypertension; G20 Parkinson's disease; F32.9 Major depressive disorder, single episode, unspecified; E78.5 Hyperlipidemia, unspecified; F41.9 Anxiety disorder, unspecified; Z79.899 Other long term (current) drug therapy
CPT/HCPCS: 36415; 70450; 72125; 80053; 84484; 85025; 93005

== ENCOUNTER 2020-07-06 09:19 | Outpatient (CLI) | payer MEDICARE ==
--- NOTE | 2020-07-06 11:50 | MRI ---
MRI BRAIN NONCONTRAST: DATE: 07/06/2020 HISTORY: 75-year-old female with headache and dizzy spells. TECHNIQUE: This was ordered with and without contrast. However, because of patient's low GFR of 34, and no histo ry of cancer, and no high index of suspicion for infection, the study was performed without contrast. FINDINGS: There is no obstructive hydrocephalus. There is no midline shift or any other evidence of mass effect . There is no extra-axial fluid collection. There are mild chronic ischemic white matter changes due to microvascular atherosclerosis. There is diffuse brain parenchymal volume loss. There is no batsheva dence of recent hemorrhage or restricted diffusion. There is a small en plaque ossified meningioma overlying the left cerebral convexity, which is unchanged compared to 04/04/2017. IMPRESSION: 1) Involutional changes and mild chronic ischemic white matter changes, typical for age. 2) no acute intracranial findings. 3) incidental finding of a small ossified en plaque meningioma over the left cerebral convexity.
== END 2020-07-06 09:20 | disposition home or self-care (01) ==
LOC: TBSIIMAG 09:19
PROVIDERS: ATTEND Surgery
DX: R51.9 Headache, unspecified (principal); R42 Dizziness and giddiness; D32.0 Benign neoplasm of cerebral meninges
CPT/HCPCS: 70551; 70553; 82565

== ENCOUNTER 2020-08-02 10:28 | Outpatient (CLI) | payer MEDICARE ==
--- NOTE | 2020-08-02 13:17 | MRI ---
MRI OF THE LUMBAR SPINE: DATE: 08/02/2020. COMPARISON: None. HISTORY: Back pain, lumbar radiculopathy. TECHNIQUE: Multiplanar, multisequence MR imaging of the lumbar spine is provided without contrast. FINDINGS: There are prominent edematous degenerative end plate changes present at the L3-4 level. On the basis of 5 lumbar-type vertebral bodies, the conus medullaris terminates at the T12-L1 level. T12-L1: There is disk space narrowing with disk desiccation. Mild bilateral fact hypertrophy with n o significant central canal or neural foraminal stenosis. L1-2: There is disk space narrowing and disk desiccation with mild anterior osteophyte formation. T here is no significant central canal or neural foraminal stenosis. L2-3: There is disk space narrowing with disk desiccation, anterior osteophyte formation, and mild d isk bulge. Mild bilateral facet hypertrophy with no significant central canal or neural foraminal st enosis. L3-4: Prominent degenerative end plate change. Disk-osteophyte complex present with minimal left la teral recess stenosis. No significant right neural foraminal stenosis. Mild left neural foraminal s tenosis. L4-5: There is disk space narrowing with disk desiccation and mild disk bulge. There is a very smal l disk protrusion in the left paracentral region with no associated central canal or neural foraminal stenosis. L5-S1: There is disk space narrowing with disk desiccation. There is an annular tear in the left pa racentral region. There is mild bilateral facet hypertrophy. There is no significant central canal or neural foraminal stenosis. Review of the retroperitoneal structures demonstrates no acute findings. IMPRESSION: Degenerative changes as described above. POS: [facility]
== END 2020-08-02 10:29 | disposition home or self-care (01) ==
LOC: TBSIIMAG 10:28
PROVIDERS: ATTEND Surgery
DX: M47.26 Other spondylosis with radiculopathy, lumbar region (principal)
CPT/HCPCS: 72148

== ENCOUNTER 2021-01-18 15:37 | Emergency (ER) | payer MEDICARE | END 2021-01-18 20:14 | disposition home or self-care (01) | LOC: ERS 15:37 | DX: S00.83XA Contusion of other part of head, initial encounter (principal); G20 Parkinson's disease; K21.9 Gastro-esophageal reflux disease without esophagitis; E03.9 Hypothyroidism, unspecified; E78.5 Hyperlipidemia, unspecified; I10 Essential (primary) hypertension; Z79.82 Long term (current) use of aspirin; Z79.899 Other long term (current) drug therapy; X58.XXXA Exposure to other specified factors, initial encounter | CPT/HCPCS: 70450; 70486; 72125 ==

== ENCOUNTER 2021-09-09 07:23 | Outpatient (CLI) | payer MEDICARE ==
[2021-09-09] MEDS ORDERED: Iopamidol 370 76% 100 ML VIAL ONE (14:29)
== END 2021-09-09 07:24 | disposition home or self-care (01) ==
LOC: CT 07:23
PROVIDERS: ATTEND Student in an Organized Health Care Education/Training Program
DX: R19.00 Intra-abdominal and pelvic swelling, mass and lump, unspecified site (principal); K86.2 Cyst of pancreas; Z90.710 Acquired absence of both cervix and uterus
CPT/HCPCS: 74178; 82565; Q9967

== ENCOUNTER 2021-12-15 13:38 | Outpatient (CLI) | payer MEDICARE | END 2021-12-15 13:39 | disposition home or self-care (01) | LOC: TBSIIMAG 13:38 | PROVIDERS: ATTEND Surgery | DX: M47.22 Other spondylosis with radiculopathy, cervical region (principal); Z98.1 Arthrodesis status | CPT/HCPCS: 72141 ==

== ENCOUNTER 2022-03-04 20:02 | Emergency (ER) | payer MEDICARE ==
[2022-03-04 20:26] LABS: #Eosinphils 0.2 thou/uL (0.0-0.7); #Lymphocytes 1.3 thou/uL (1.20-3.40); #Monocytes 0.4 thou/uL (0.11-0.59); #Neutrophils 3.7 thou/uL (1.40-6.50); %Basophils 0.8 % (0.0-1.0); %Eosinophils 3.8 % (0.0-10.0); %Lymphocytes 23.2 % (21.0-51.0); %Monocytes 6.3 % (0.0-10.0); %Neutrophils 65.9 % (42.0-75.0); Hemoglobin 12.7 g/dL (12.0-16.0); Mean Corpuscular HGB CONC 32.8 g/dL (32.0-36.0); Mean Corpuscular Hemoglobin 30.6 pg (27.0-31.0); Mean Corpuscular Volume 93.2 fL (78.0-98.0); Mean Platelet Volume 6.9 fL (7.4-10.4); Platelet Count 170 thou/uL (130-400); RBC Distribution Width 13.6 % (11.5-14.5); Red Blood Cell (RBC) Count 4.14 mill/uL (4.20-5.40); White Blood Cell (WBC) Count 5.6 thou/uL (4.8-10.8)
[2022-03-04 20:50] LABS: ALT (SGPT) Less than 7 U/L (8-55); AST (SGOT) 12 U/L (5-34); Albumin 3.9 g/dL (3.4-4.8); Alkaline Phosphatase 65 U/L (40-110); Anion Gap 12 mmol/L (10-20); BUN (Urea Nitrogen) 18 mg/dL (9.8-20.1); Bilirubin, Total 0.3 mg/dL (0.2-1.2); Calc. Creatinine Clearance 0 mL/min (70-130); Calcium 9.7 mg/dL (7.8-10.44); Carbon Dioxide 29 mmol/L (23-31); Chloride 101 mmol/L (98-107); Estimated GFR 36; Globulin 2.6 g/dL (2.4-3.5); Glucose 112 mg/dL (83-110); Magnesium 1.9 mg/dL (1.6-2.6); Potassium 3.2 mmol/L (3.5-5.1); Protein, Total 6.5 g/dL (5.8-8.1); Sodium 139 mmol/L (136-145)
== END 2022-03-04 22:55 | disposition home or self-care (01) ==
LOC: ERS 20:02
DX: R55 Syncope and collapse (principal); E03.9 Hypothyroidism, unspecified; K21.9 Gastro-esophageal reflux disease without esophagitis; E78.5 Hyperlipidemia, unspecified; E78.00 Pure hypercholesterolemia, unspecified; I10 Essential (primary) hypertension; Z79.82 Long term (current) use of aspirin; Z79.899 Other long term (current) drug therapy
CPT/HCPCS: 71045; 80053; 83735; 84443; 84484; 85025; 93005

== ENCOUNTER 2022-06-23 09:24 | Outpatient (CLI) | payer MEDICARE | END 2022-06-23 09:25 | disposition home or self-care (01) | LOC: ULT 09:24 | PROVIDERS: ATTEND Internal Medicine Nephrology | DX: N17.9 Acute kidney failure, unspecified (principal); R93.421 Abnormal radiologic findings on diagnostic imaging of right kidney; R93.422 Abnormal radiologic findings on diagnostic imaging of left kidney | CPT/HCPCS: 76770 ==

== ENCOUNTER 2023-03-28 10:19 | Outpatient (CLI) | payer MEDICARE | END 2023-03-28 10:20 | disposition home or self-care (01) | LOC: BICCT 10:19 | PROVIDERS: ATTEND Nurse Practitioner Family | DX: M48.062 Spinal stenosis, lumbar region with neurogenic claudication (principal); M47.816 Spondylosis without myelopathy or radiculopathy, lumbar region; M47.817 Spondylosis without myelopathy or radiculopathy, lumbosacral region | CPT/HCPCS: 72131 ==

== ENCOUNTER 2023-04-24 17:52 | Emergency (ER) | payer OTHER, MEDICARE | END 2023-04-24 19:16 | disposition home or self-care (01) | LOC: ERS 17:52 | DX: S06.0X0A Concussion without loss of consciousness, initial encounter (principal); G20 Parkinson's disease; W01.190A Fall on same level from slipping, tripping and stumbling with subsequent striking against furniture, initial encounter; Y93.01 Activity, walking, marching and hiking; Y92.009 Unspecified place in unspecified non-institutional (private) residence as the place of occurrence of the external cause; Z79.01 Long term (current) use of anticoagulants; Z95.0 Presence of cardiac pacemaker | CPT/HCPCS: 70450 ==

== ENCOUNTER 2023-05-06 16:31 | Emergency (ER) | payer MEDICARE ==
[2023-05-06] MEDS ORDERED: Meclizine HCl 25 MG TAB ONE ×2 (17:11→17:13)
[2023-05-06 17:29] LABS: #Eosinphils 0.1 thou/uL (0.0-0.7); #Monocytes 0.5 thou/uL (0.11-0.59); #Neutrophils 5.5 thou/uL (1.40-6.50); %Basophils 0.6 % (0.0-1.0); %Eosinophils 1.7 % (0.0-10.0); %Lymphocytes 13.4 % (21.0-51.0); %Monocytes 6.4 % (0.0-10.0); %Neutrophils 77.6 % (42.0-75.0); Mean Corpuscular HGB CONC 33.3 g/dL (32.0-36.0); Mean Corpuscular Hemoglobin 31.3 pg (27.0-31.0); Mean Platelet Volume 9.3 fL (7.4-10.4); Platelet Count 192 10x3/uL (130-400); RBC Distribution Width 13.6 % (11.5-14.5); Red Blood Cell (RBC) Count 4.15 mill/uL (4.20-5.40)
[2023-05-06 17:54] LABS: ALT (SGPT) Less than 7 U/L (8-55); AST (SGOT) 15 U/L (5-34); Albumin 4.1 g/dL (3.4-4.8); Alkaline Phosphatase 65 U/L (40-110); Anion Gap 14 mmol/L (10-20); BUN (Urea Nitrogen) 27 mg/dL (9.8-20.1); Bilirubin, Total 0.4 mg/dL (0.2-1.2); Calc. Creatinine Clearance 0 mL/min (70-130); Calcium 9.7 mg/dL (7.8-10.44); Carbon Dioxide 23 mmol/L (23-31); Chloride 103 mmol/L (98-107); Estimated GFR 29; Globulin 2.3 g/dL (2.4-3.5); Glucose 89 mg/dL (83-110); Potassium 3.7 mmol/L (3.5-5.1); Protein, Total 6.4 g/dL (5.8-8.1); Sodium 136 mmol/L (136-145)
== END 2023-05-06 21:14 | disposition home or self-care (01) ==
LOC: ERS 16:31
DX: R42 Dizziness and giddiness (principal); R51.9 Headache, unspecified
CPT/HCPCS: 36415; 70450; 71045; 80053; 85025; 93005

== ENCOUNTER 2023-05-07 21:19 | Emergency (ER) | payer MEDICARE ==
[2023-05-07] MEDS ORDERED: Meclizine HCl 25 MG TAB ONE (22:56)
== END 2023-05-08 00:13 | disposition home or self-care (01) ==
LOC: ERS 21:19
DX: R42 Dizziness and giddiness (principal); W18.30XA Fall on same level, unspecified, initial encounter
CPT/HCPCS: 70450; 93005

== ENCOUNTER 2023-08-07 16:00 | Emergency (ER) | payer OTHER, MEDICARE ==
[2023-08-07 17:17] LABS: #Eosinphils 0.1 thou/uL (0.0-0.7); #Monocytes 0.4 thou/uL (0.11-0.59); %Basophils 0.5 % (0.0-1.0); %Eosinophils 1.7 % (0.0-10.0); %Lymphocytes 21.3 % (21.0-51.0); %Neutrophils 69.2 % (42.0-75.0); Hematocrit 39.4 % (36.0-47.0); Mean Corpuscular Hemoglobin 31.7 pg (27.0-31.0); Mean Corpuscular Volume 96.1 fl (78.0-98.0); Mean Platelet Volume 9.2 fL (7.4-10.4); Platelet Count 179 10x3/uL (130-400); RBC Distribution Width 13.2 % (11.5-14.5); White Blood Cell (WBC) Count 5.8 10x3/uL (4.8-10.8)
[2023-08-07] MEDS ORDERED: Acetaminophen 500 MG TAB ONE (17:36)
[2023-08-07 17:41] LABS: ALT (SGPT) Less than 7 U/L (8-55); AST (SGOT) 15 U/L (5-34); Alkaline Phosphatase 56 U/L (40-110); Anion Gap 12 mmol/L (10-20); BUN (Urea Nitrogen) 23 mg/dL (9.8-20.1); Bilirubin, Total 0.5 mg/dL (0.2-1.2); Calc. Creatinine Clearance 0 mL/min (70-130); Calcium 9.7 mg/dL (7.8-10.44); Carbon Dioxide 28 mmol/L (23-31); Chloride 102 mmol/L (98-107); Estimated GFR 46; Globulin 2.5 g/dL (2.4-3.5); Glucose 87 mg/dL (83-110); Protein, Total 6.5 g/dL (5.8-8.1); Sodium 138 mmol/L (136-145)
[2023-08-07 17:46] LABS: Troponin I Less than 0.010 ng/mL (< 0.028)
== END 2023-08-07 18:28 | disposition home or self-care (01) ==
LOC: ERS 16:00
DX: S09.90XA Unspecified injury of head, initial encounter (principal); I10 Essential (primary) hypertension; E78.00 Pure hypercholesterolemia, unspecified; Z79.899 Other long term (current) drug therapy; Z79.82 Long term (current) use of aspirin; W01.10XA Fall on same level from slipping, tripping and stumbling with subsequent striking against unspecified object, initial encounter
CPT/HCPCS: 36415; 70450; 71045; 72125; 80053; 84484; 85025; 93005

== ENCOUNTER 2023-11-12 23:10 | Inpatient (IN) | payer MEDICARE ==
[2023-11-12] MEDS ORDERED: CEFAZOLIN 2 GM VIAL ONE (23:24)
[2023-11-12] MEDS ORDERED: Sodium Chloride 0.9% 100 ML ONE (23:24)
[2023-11-12] MEDS ORDERED: fentaNYL 50 mcg/mL 1 mL Vial ONE (23:31)
[2023-11-12] MEDS ORDERED: Rabies Vaccine Human 2.5 UNITS VIAL ONE (23:47)
[2023-11-12] MEDS ORDERED: Ondansetron PF 4 MG/2 ML Vial ONE (23:47)
[2023-11-13] MEDS ORDERED: Rabies Immune Globulin/PF 300 UNITS/ML VIAL ONE ×2 (00:01)
[2023-11-13 00:08] LABS: ALT (SGPT) Less than 7 U/L (8-55); AST (SGOT) 30 U/L (5-34); Albumin 4.1 g/dL (3.4-4.8); Alkaline Phosphatase 67 U/L (40-110); Anion Gap 21 mmol/L (10-20); BUN (Urea Nitrogen) 25 mg/dL (9.8-20.1); Bilirubin, Total 0.7 mg/dL (0.2-1.2); Calc. Creatinine Clearance 0 mL/min (70-130); Calcium 9.6 mg/dL (7.8-10.44); Carbon Dioxide 14 mmol/L (23-31); Chloride 105 mmol/L (98-107); Estimated GFR 27; Globulin 2.7 g/dL (2.4-3.5); Glucose 104 mg/dL (83-110); Potassium 3.8 mmol/L (3.5-5.1); Protein, Total 6.8 g/dL (5.8-8.1); Sodium 136 mmol/L (136-145)
[2023-11-13 00:10] LABS: #Basophils 0.1 thou/uL (0.0-0.2); #Eosinphils 0.1 thou/uL (0.0-0.7); %Basophils 0.3 % (0.0-1.0); %Eosinophils 0.3 % (0.0-10.0); %Lymphocytes 4.7 % (21.0-51.0); %Monocytes 4.9 % (0.0-10.0); %Neutrophils 89.2 % (42.0-75.0); Hematocrit 36.7 % (36.0-47.0); Mean Corpuscular HGB CONC 32.7 g/dL (32.0-36.0); Mean Corpuscular Volume 97.9 fl (78.0-98.0); Mean Platelet Volume 9.5 fL (7.4-10.4); Platelet Count 196 10x3/uL (130-400); RBC Distribution Width 13.1 % (11.5-14.5); Red Blood Cell (RBC) Count 3.75 mill/uL (4.20-5.40); White Blood Cell (WBC) Count 20.1 10x3/uL (4.8-10.8)
[2023-11-13 00:23] LABS: INR-International Normal Ratio 1.3; Prothrombin Time 16.2 sec (12.0-14.7)
[2023-11-13 00:24] LABS: PTT 33.4 sec (22.9-36.1)
[2023-11-13] MEDS ORDERED: Morphine 4 MG/ML VIAL ONE (01:03)
[2023-11-13] MEDS ORDERED: Ipratropium/Albuterol 3 ML NEB NEB PRN (01:10)
[2023-11-13] MEDS ORDERED: Ondansetron PF 4 MG/2 ML Vial IVP PRN (01:10)
[2023-11-13 03:28] VITALS: BMI 25.2
[2023-11-13] MEDS: Sodium Chloride 0.9% 1,000 ML IV SCH (04:12)
[2023-11-13] MEDS: Piperacillin/Tazobactam 3.375 GM in Sodium Chloride 0.9% 100 ML IVPB SCH ×2 (04:13→08:15)
[2023-11-13 05:28] LABS: #Monocytes 0.9 thou/uL (0.11-0.59); #Neutrophils 13.3 thou/uL (1.40-6.50); %Basophils 0.3 % (0.0-1.0); %Eosinophils 0.1 % (0.0-10.0); %Lymphocytes 6.5 % (21.0-51.0); %Monocytes 5.7 % (0.0-10.0); %Neutrophils 86.8 % (42.0-75.0); Hematocrit 33.6 % (36.0-47.0); Mean Corpuscular HGB CONC 32.7 g/dL (32.0-36.0); Mean Corpuscular Hemoglobin 31.7 pg (27.0-31.0); Mean Corpuscular Volume 96.8 fl (78.0-98.0); Mean Platelet Volume 9.1 fL (7.4-10.4); Platelet Count 163 10x3/uL (130-400); RBC Distribution Width 13.2 % (11.5-14.5); Red Blood Cell (RBC) Count 3.47 mill/uL (4.20-5.40); White Blood Cell (WBC) Count 15.4 10x3/uL (4.8-10.8)
[2023-11-13 05:43] LABS: INR-International Normal Ratio 1.3; Prothrombin Time 16.1 sec (12.0-14.7)
[2023-11-13 05:44] LABS: PTT 33.4 sec (22.9-36.1)
[2023-11-13 05:45] LABS: Anion Gap 11 mmol/L (10-20); BUN (Urea Nitrogen) 29 mg/dL (9.8-20.1); Calc. Creatinine Clearance 26 mL/min (70-130); Calcium 8.7 mg/dL (7.8-10.44); Carbon Dioxide 25 mmol/L (23-31); Chloride 106 mmol/L (98-107); Estimated GFR 27; Glucose 115 mg/dL (83-110); Potassium 3.7 mmol/L (3.5-5.1); Sodium 138 mmol/L (136-145)
[2023-11-13] MEDS: Levothyroxine Sodium 100 MCG TAB PO SCH (05:50)
[2023-11-13] MEDS: Acetaminophen 325 MG TAB PO SCH (05:50)
[2023-11-13] MEDS ORDERED: Piperacillin/Tazobactam 3.375 GM in Sodium Chloride 0.9% 100 ML IVPB SCH (06:00)
[2023-11-13] MEDS: Famotidine/PF 20 mg/2ml Vial SLOW IVP SCH (08:15)
[2023-11-13] MEDS: DULoxetine 60 MG CAP PO SCH (08:30)
[2023-11-13] MEDS: Carbidopa/Levodopa CR 50-200 mg Tablet PO SCH (08:31)
[2023-11-13] MEDS ORDERED: PROPOFOL 40 ML ONE (12:37)
[2023-11-13] MEDS ORDERED: fentaNYL PF 100 MCG/2 ML SYRINGE ONE (12:37)
[2023-11-13] MEDS ORDERED: Lidocaine 2% PF 5 ML VIAL ONE (12:39)
[2023-11-13] MEDS ORDERED: Ondansetron PF 4 MG/2 ML Vial ONE (13:24)
[2023-11-13] MEDS ORDERED: PHENYLEPHRINE-NS 100 MCG/ML 10 ML SYRINGE ONE (13:31)
[2023-11-14] MEDS: Lorazepam 2 MG/ML VIAL SLOW IVP SCH (06:01)
[2023-11-14] MEDS: Morphine 2 MG/ML VIAL SLOW IVP PRN (09:34)
[2023-11-15 07:54] LABS: #Eosinphils 0.1 thou/uL (0.0-0.7); #Monocytes 0.4 thou/uL (0.11-0.59); #Neutrophils 3.2 thou/uL (1.40-6.50); %Basophils 0.5 % (0.0-1.0); %Eosinophils 2.3 % (0.0-10.0); %Lymphocytes 15.6 % (21.0-51.0); %Monocytes 7.9 % (0.0-10.0); %Neutrophils 73.5 % (42.0-75.0); Hematocrit 28.9 % (36.0-47.0); Hemoglobin 9.4 g/dL (12.0-16.0); Mean Corpuscular HGB CONC 32.5 g/dL (32.0-36.0); Mean Corpuscular Hemoglobin 31.3 pg (27.0-31.0); Mean Corpuscular Volume 96.3 fl (78.0-98.0); Mean Platelet Volume 9.5 fL (7.4-10.4); Platelet Count 126 10x3/uL (130-400); RBC Distribution Width 13.1 % (11.5-14.5); White Blood Cell (WBC) Count 4.4 10x3/uL (4.8-10.8)
[2023-11-15 08:09] LABS: Anion Gap 10 mmol/L (10-20); BUN (Urea Nitrogen) 16 mg/dL (9.8-20.1); Calc. Creatinine Clearance 48 mL/min (70-130); Calcium 8.6 mg/dL (7.8-10.44); Carbon Dioxide 25 mmol/L (23-31); Chloride 110 mmol/L (98-107); Estimated GFR 54; Glucose 93 mg/dL (83-110); Potassium 3.6 mmol/L (3.5-5.1); Sodium 141 mmol/L (136-145)
[2023-11-15 08:13] LABS: INR-International Normal Ratio 1.2; Prothrombin Time 14.7 sec (12.0-14.7)
[2023-11-15 08:14] LABS: PTT 38.2 sec (22.9-36.1)
[2023-11-16] MEDS ORDERED: Rabies Immune Globulin/PF 300 UNITS/ML VIAL IM SCH (06:00)
[2023-11-16] MEDS ORDERED: fentaNYL PF 100 MCG/2 ML SYRINGE ONE ×2 (06:25→09:12)
[2023-11-16] MEDS ORDERED: PROPOFOL 20 ML ONE (06:25)
[2023-11-16] MEDS ORDERED: Lidocaine 2% PF 5 ML VIAL ONE (06:25)
[2023-11-16] MEDS ORDERED: Sodium Chloride 0.9% 100 ML ONE (07:08)
[2023-11-16] MEDS ORDERED: Piperacillin/Tazobactam 3.375 GM VIAL ONE (07:08)
[2023-11-16] MEDS ORDERED: Bacitracin Zinc Ointment 30 gm TUBE ONE (07:10)
[2023-11-16] MEDS ORDERED: Thrombin 5000 UNITS/5 ML VIAL ONE ×2 (07:11→08:22)
[2023-11-16] MEDS ORDERED: Bupivacaine PF 0.5% 30 ML VIAL ONE (07:11)
[2023-11-16] MEDS ORDERED: Mineral Oil Sterile 10 ML VIAL ONE (07:11)
[2023-11-16] MEDS ORDERED: Lidocaine 1% MPF 2 ML VIAL ONE (07:47)
[2023-11-16] MEDS ORDERED: hydrALAZINE 20 MG/ML VIAL ONE (09:12)
[2023-11-16] MEDS ORDERED: Rabies Vaccine Human 2.5 UNITS VIAL IM ONE (10:00)
[2023-11-16] MEDS: Morphine 4 MG/ML VIAL SLOW IVP PRN (10:06)
[2023-11-17 09:15] LABS: #Basophils 0.03 10x3/uL (0.0-0.2); %Basophils 0.6 % (0.0-1.0); %Eosinophils 3.8 % (0.0-10.0); %Lymphocytes 22.1 % (21.0-51.0); %Monocytes 6.6 % (0.0-10.0); %Neutrophils 66.7 % (42.0-75.0); Hematocrit 31.3 % (36.0-47.0); Hemoglobin 10.1 g/dL (12.0-16.0); Mean Corpuscular HGB CONC 32.3 g/dL (32.0-36.0); Mean Corpuscular Hemoglobin 31.8 pg (27.0-31.0); Mean Corpuscular Volume 98.4 fL (78.0-98.0); Mean Platelet Volume 10.1 fL (7.4-10.4); Platelet Count 186 10x3/uL (130-400); RBC Distribution Width 13.3 % (11.5-14.5); Red Blood Cell (RBC) Count 3.18 mill/uL (4.20-5.40)
[2023-11-19] MEDS: Heparin 5,000 UNITS/ML VIAL SC SCH (08:17)
[2023-11-20 04:21] LABS: #Basophils 0.04 10x3/uL (0.0-0.2); %Basophils 0.8 % (0.0-1.0); %Eosinophils 4.5 % (0.0-10.0); %Lymphocytes 22.5 % (21.0-51.0); %Monocytes 6.9 % (0.0-10.0); %Neutrophils 64.9 % (42.0-75.0); Hematocrit 31.2 % (36.0-47.0); Mean Corpuscular HGB CONC 32.1 g/dL (32.0-36.0); Mean Corpuscular Hemoglobin 31.3 pg (27.0-31.0); Mean Corpuscular Volume 97.8 fL (78.0-98.0); Mean Platelet Volume 9.9 fL (7.4-10.4); Platelet Count 196 10x3/uL (130-400); RBC Distribution Width 13.6 % (11.5-14.5); Red Blood Cell (RBC) Count 3.19 mill/uL (4.20-5.40)
[2023-11-20 04:35] LABS: Anion Gap 14 mmol/L (10-20); BUN (Urea Nitrogen) 12 mg/dL (9.8-20.1); Calc. Creatinine Clearance 49 mL/min (70-130); Calcium 9.2 mg/dL (7.8-10.44); Carbon Dioxide 23 mmol/L (23-31); Chloride 107 mmol/L (98-107); Estimated GFR 56; Glucose 101 mg/dL (83-110); Potassium 3.4 mmol/L (3.5-5.1); Sodium 141 mmol/L (136-145)
[2023-11-20] MEDS ORDERED: Morphine 4 MG/ML VIAL SLOW IVP PRN (12:30)
[2023-11-20] MEDS: Lactulose 20 GM (30 mL) UDCUP PO SCH (21:46)
[2023-11-20] MEDS: Magnesium Citrate 300 ML BOT PO SCH (21:47)
[2023-11-22] MEDS: Acetaminophen 500 MG TAB PO SCH (10:16)
[2023-11-22] MEDS: Rabies Vaccine Human 2.5 UNITS VIAL IM ONE (12:42)
[2023-11-22 16:02] VITALS: BP 145/83; TEMP 97.1
== END 2023-11-22 16:00 | DRG 578 ==
LOC: ERS 23:10 → SURG B 11-13 01:42
PROVIDERS: ADMIT Student in an Organized Health Care Education/Training Program; ATTEND Student in an Organized Health Care Education/Training Program
PROC: 0KD90ZZ Extraction of Right Lower Arm and Wrist Muscle, Open Approach (ICD-10-PCS; principal; 2023-11-13)
PROC: 0KDB0ZZ Extraction of Left Lower Arm and Wrist Muscle, Open Approach (ICD-10-PCS; 2023-11-13)
PROC: 0HRDX74 Replacement of Right Lower Arm Skin with Autologous Tissue Substitute, Partial Thickness, External Approach (ICD-10-PCS; 2023-11-16)
PROC: 0JBG0ZZ Excision of Right Lower Arm Subcutaneous Tissue and Fascia, Open Approach (ICD-10-PCS; 2023-11-16)
PROC: 0JBH0ZZ Excision of Left Lower Arm Subcutaneous Tissue and Fascia, Open Approach (ICD-10-PCS; 2023-11-16)
DX: S51.852A Open bite of left forearm, initial encounter (principal); S51.851A Open bite of right forearm, initial encounter; I48.91 Unspecified atrial fibrillation; Z79.01 Long term (current) use of anticoagulants; G20.A1 Parkinson's disease without dyskinesia, without mention of fluctuations; E03.9 Hypothyroidism, unspecified; N18.30 Chronic kidney disease, stage 3 unspecified; E78.5 Hyperlipidemia, unspecified; Z95.0 Presence of cardiac pacemaker; Z90.710 Acquired absence of both cervix and uterus; Z88.8 Allergy status to other drugs, medicaments and biological substances
CPT/HCPCS: 36415; 70450; 72125; 80048; 80053; 85025; 85610; 85730; 86850; 86900; 86901; 90375; 90471; 90675; 93005; 96374; 96375; 97139; A6258; J0360; J0665; J1644; J2001; J2060; J2270; J2272; J2405; J2543; J2704; J3010; J3490; J7050; S0028

== ENCOUNTER 2024-01-03 15:33 | Inpatient (IN) | payer MEDICARE ==
[~2024-01-03 15:33] MED LIST changes: -ISOVUE-370 76%-LOCM 1 ML ONE; +Iopamidol-370 76% 500 ML MDV (1 ML CHARGE) ONE
[2024-01-03 16:20] LABS: #Basophils 0.05 10x3/uL (0.0-0.2); %Basophils 0.8 % (0.0-1.0); %Eosinophils 1.4 % (0.0-10.0); %Lymphocytes 7.8 % (21.0-51.0); %Monocytes 3.1 % (0.0-10.0); %Neutrophils 86.6 % (42.0-75.0); Hemoglobin 11.1 g/dL (12.0-16.0); Mean Corpuscular HGB CONC 30.8 g/dL (32.0-36.0); Mean Corpuscular Hemoglobin 29.1 pg (27.0-31.0); Mean Corpuscular Volume 94.5 fL (78.0-98.0); Mean Platelet Volume 9.8 fL (7.4-10.4); Platelet Count 196 10x3/uL (130-400); RBC Distribution Width 13.7 % (11.5-14.5); Red Blood Cell (RBC) Count 3.81 mill/uL (4.20-5.40)
[2024-01-03 16:36] LABS: ALT (SGPT) Less than 5 U/L (8-55); AST (SGOT) 21 U/L (5-34); Albumin 3.4 g/dL (3.4-4.8); Alkaline Phosphatase 349 U/L (40-110); Anion Gap 17 mmol/L (10-20); BUN (Urea Nitrogen) 20 mg/dL (9.8-20.1); Bilirubin, Total 0.4 mg/dL (0.2-1.2); Calc. Creatinine Clearance 0 mL/min (70-130); Calcium 9.3 mg/dL (7.8-10.44); Carbon Dioxide 21 mmol/L (23-31); Chloride 107 mmol/L (98-107); Estimated GFR 32; Glucose 140 mg/dL (83-110); Lipase 20 U/L (8-78); Magnesium 2.4 mg/dL (1.6-2.6); Potassium 3.6 mmol/L (3.5-5.1); Protein, Total 6.4 g/dL (5.8-8.1); Sodium 141 mmol/L (136-145)
[2024-01-03 16:40] LABS: Troponin I Less than 0.010 ng/mL (< 0.028)
[2024-01-03 16:59] LABS: Actual Bicarbonate (HCO3v) 23.7 mEq/L (22-28); Base Excess -3.2 mEq/L (-2.0 to +3.0); Calcium, Ionized (venous) 1.09 mmol/L (1.16-1.32); Hematocrit-VBG 33 % (36.0-47.0); Hemoglobin (Hb) 11.2 g/dL (11.7-16.1); Potassium (VBG) 3.54 mmol/L (3.70-5.30); Sodium 133 mmol/L (133-146); pH (venous) 7.286 (7.32-7.43)
[2024-01-03 18:21] LABS: Bilirubin Unable to Interpret (Negative); Blood, Urine Unable to Interpret (Negative); Clarity Hazy (Clear); Glucose, Urine (Dipstick) Unable to Interpret mg/dL (Negative); Ketone, Urine Unable to Interpret mg/dL (Negative); Leukocyte Unable to Interpret Leu/uL (Negative); Nitrite Unable to Interpret (Negative); Protein, Urine (Dipstick) Unable to Interpret mg/dL (Neg-Trace); Specific Gravity, Urine 1.053 (1.002-1.036); Urobilinogen UNABLE TO INTERPRET mg/dL (Less than 2); pH, Urine 5.3 (5.0-9.0)
[2024-01-03 18:22] LABS: CAUTI Indications for Culture Dysuria,urgency,freq; RBC/HPF None Seen HPF (0-3); WBC/HPF None Seen HPF (0-3)
[2024-01-03 18:23] LABS: Bacteria/HPF Rare-Few HPF (None Seen); Squamous Epithelial 0-3 HPF (0-3)
[2024-01-03 18:24] LABS: Urine Culture Reflex No No
[2024-01-03] MEDS ORDERED: Vancomycin 1 GM/200 ML (FROZEN) BAG ONE ×2 (18:35→19:09)
[2024-01-03] MEDS ORDERED: Sodium Chloride 0.9% 100 ML ONE (18:37)
[2024-01-03] MEDS ORDERED: Piperacillin/Tazobactam 3.375 GM VIAL ONE (18:37)
[2024-01-03] MEDS ORDERED: Ondansetron PF 4 MG/2 ML Vial IVP PRN (19:26)
[2024-01-03] MEDS ORDERED: Acetaminophen 325 MG TAB PO PRN (19:26)
[2024-01-03 19:44] LABS: Lactic Acid 2.5 mmol/L (0.5-2.2)
[2024-01-03 19:54] VITALS: BMI 26.4
[2024-01-03 19:55] LABS: Troponin I Less than 0.010 ng/mL (< 0.028)
[2024-01-03] MEDS: Flecainide 50 MG TAB PO SCH (21:21)
[2024-01-03] MEDS: Carbidopa/Levodopa CR 50-200 mg Tablet PO SCH (21:21)
[2024-01-03] MEDS: Apixaban 5 MG TAB PO SCH (21:21)
[2024-01-03] MEDS: Lactated Ringer's 1,000 ML IV SCH (21:22)
[2024-01-03] MEDS: Vancomycin HCl 125 MG Capsule PO SCH (21:30)
[2024-01-03 23:35] LABS: Troponin I Less than 0.010 ng/mL (< 0.028)
[2024-01-04 05:23] LABS: #Basophils Less than 0.03 10x3/uL (0.0-0.2); %Basophils 0.3 % (0.0-1.0); %Eosinophils 2.9 % (0.0-10.0); %Lymphocytes 9.5 % (21.0-51.0); %Monocytes 6.4 % (0.0-10.0); %Neutrophils 80.4 % (42.0-75.0); Hematocrit 30.9 % (36.0-47.0); Hemoglobin 9.6 g/dL (12.0-16.0); Mean Corpuscular HGB CONC 31.1 g/dL (32.0-36.0); Mean Corpuscular Hemoglobin 28.8 pg (27.0-31.0); Mean Corpuscular Volume 92.8 fL (78.0-98.0); Mean Platelet Volume 9.7 fL (7.4-10.4); Platelet Count 144 10x3/uL (130-400); RBC Distribution Width 13.8 % (11.5-14.5); Red Blood Cell (RBC) Count 3.33 mill/uL (4.20-5.40)
[2024-01-04 05:40] LABS: Anion Gap 12 mmol/L (10-20); BUN (Urea Nitrogen) 17 mg/dL (9.8-20.1); Calc. Creatinine Clearance 39 mL/min (70-130); Calcium 8.5 mg/dL (7.8-10.44); Carbon Dioxide 23 mmol/L (23-31); Chloride 111 mmol/L (98-107); Estimated GFR 41; Glucose 121 mg/dL (83-110); Potassium 3.5 mmol/L (3.5-5.1); Sodium 142 mmol/L (136-145)
[2024-01-04] MEDS: Levothyroxine Sodium 100 MCG TAB PO SCH (06:07)
[2024-01-04] MEDS: Aspirin 81 mg Enteric Coated Tablet PO SCH (09:33)
[2024-01-04] MEDS: DULoxetine 60 MG CAP PO SCH (09:33)
[2024-01-04 11:59] VITALS: BP 137/82; TEMP 98.7
== END 2024-01-04 11:50 | disposition home or self-care (01) | DRG 641 ==
LOC: ERS 15:33 → OBSVTOIN 19:14 → MSONC 19:14
PROVIDERS: ADMIT Internal Medicine; ATTEND Family Medicine
DX: E86.9 Volume depletion, unspecified (principal); N17.9 Acute kidney failure, unspecified; E86.0 Dehydration; E87.20 Acidosis, unspecified; Z88.8 Allergy status to other drugs, medicaments and biological substances; Z79.899 Other long term (current) drug therapy; E78.00 Pure hypercholesterolemia, unspecified; Z79.01 Long term (current) use of anticoagulants; E03.9 Hypothyroidism, unspecified; E78.5 Hyperlipidemia, unspecified; N18.30 Chronic kidney disease, stage 3 unspecified; I12.9 Hypertensive chronic kidney disease with stage 1 through stage 4 chronic kidney disease, or unspecified chronic kidney disease; I48.91 Unspecified atrial fibrillation; Z95.0 Presence of cardiac pacemaker; Z90.710 Acquired absence of both cervix and uterus; G20.A1 Parkinson's disease without dyskinesia, without mention of fluctuations; I95.9 Hypotension, unspecified
CPT/HCPCS: 36415; 71045; 71275; 74177; 80048; 80053; 81001; 82805; 83605; 83690; 83735; 84443; 84484; 85025; 87040; 93005; 94760; 97139; J2543; J3370-JW; J3490; J7120; Q9967

== ENCOUNTER 2024-07-04 11:14 | Outpatient (CLI) | payer MEDICARE ==
[2024-07-04 13:14] LABS: #Basophils 0.04 10x3/uL (0.0-0.2); %Basophils 0.7 % (0.0-1.0); %Eosinophils 17.9 % (0.0-10.0); %Lymphocytes 16.8 % (21.0-51.0); %Neutrophils 56.2 % (42.0-75.0); Hematocrit 39.6 % (36.0-47.0); Hemoglobin 12.5 g/dL (12.0-16.0); Mean Corpuscular HGB CONC 31.6 g/dL (32.0-36.0); Mean Corpuscular Hemoglobin 28.9 pg (27.0-31.0); Mean Corpuscular Volume 91.7 fL (78.0-98.0); Mean Platelet Volume 9.8 fL (7.4-10.4); Platelet Count 180 10x3/uL (130-400); RBC Distribution Width 14.2 % (11.5-14.5); Red Blood Cell (RBC) Count 4.32 mill/uL (4.20-5.40)
== END 2024-07-04 11:15 | disposition home or self-care (01) ==
LOC: LABBT 11:14
PROVIDERS: ATTEND Orthopaedic Surgery Hand Surgery
DX: Z01.818 Encounter for other preprocedural examination (principal)
CPT/HCPCS: 85025; 93005; 93010

== ENCOUNTER 2024-07-08 06:38 | Day surgery (SDC) | payer MEDICARE ==
[2024-07-04 11:53] VITALS: BMI 25.9
[2024-07-08] MEDS ORDERED: CEFAZOLIN 2 GM VIAL ONE (08:10)
[2024-07-08] MEDS ORDERED: Lidocaine 2% PF 5 ML VIAL ONE (08:12)
[2024-07-08] MEDS ORDERED: PROPOFOL 20 ML ONE (08:12)
[2024-07-08] MEDS ORDERED: Sodium Chloride 0.9% 250 ML 250 ML ONE (08:21)
[2024-07-08] MEDS ORDERED: Dexamethasone 20 MG/5 ML VIAL ONE (08:34)
[2024-07-08] MEDS ORDERED: Ondansetron PF 4 MG/2 ML Vial ONE (08:34)
[2024-07-08] MEDS ORDERED: Mineral Oil Sterile 10 ML VIAL ONE (08:54)
[2024-07-08] MEDS ORDERED: fentaNYL PF 100 MCG/2 ML SYRINGE ONE (09:56)
== END 2024-07-08 14:22 | disposition home or self-care (01) ==
LOC: SDC 06:38
PROVIDERS: ATTEND Orthopaedic Surgery Hand Surgery
PROC: 0HR Skin and Breast, Replacement (ICD-10-PCS; principal; 2024-07-08)
DX: T81.89XA Other complications of procedures, not elsewhere classified, initial encounter (principal); S51.851D Open bite of right forearm, subsequent encounter; S51.852D Open bite of left forearm, subsequent encounter; I12.9 Hypertensive chronic kidney disease with stage 1 through stage 4 chronic kidney disease, or unspecified chronic kidney disease; N18.30 Chronic kidney disease, stage 3 unspecified; E78.5 Hyperlipidemia, unspecified; E03.9 Hypothyroidism, unspecified; M81.0 Age-related osteoporosis without current pathological fracture; K21.9 Gastro-esophageal reflux disease without esophagitis; K58.9 Irritable bowel syndrome, unspecified; M79.7 Fibromyalgia; M47.9 Spondylosis, unspecified; G20.A1 Parkinson's disease without dyskinesia, without mention of fluctuations; G47.33 Obstructive sleep apnea (adult) (pediatric); F32.9 Major depressive disorder, single episode, unspecified; Z90.49 Acquired absence of other specified parts of digestive tract; Z90.710 Acquired absence of both cervix and uterus; Z98.49 Cataract extraction status, unspecified eye; Z95.0 Presence of cardiac pacemaker; Z98.890 Other specified postprocedural states; Z88.8 Allergy status to other drugs, medicaments and biological substances; Z79.890 Hormone replacement therapy; Z79.82 Long term (current) use of aspirin; Z79.01 Long term (current) use of anticoagulants; Z79.51 Long term (current) use of inhaled steroids; Z79.2 Long term (current) use of antibiotics; Z79.899 Other long term (current) drug therapy; W54.0XXD Bitten by dog, subsequent encounter; Y83.8 Other surgical procedures as the cause of abnormal reaction of the patient, or of later complication, without mention of misadventure at the time of the procedure
CPT/HCPCS: 15220; 15221; J1100; J2405; J2704; J7050; A6258